=== PATIENT | male | born 1965 | race African-American/Black ===

== ENCOUNTER 2018-03-11 14:51 | Emergency (ER) | payer MEDICARE, OTHER ==
[~2018-03-11] VITALS: Ht 175.3 cm; Wt 102.1 kg
[~2018-03-11 14:51] MED LIST: ABILIFY15 MG ORAL; ACETAMINOPHEN500 MG ORAL; ALLOPURINOL100 M1 ORAL; ATIVAN1 MG ORAL; BENAZEPRIL HCL10 MG ORAL; CYCLOBENZAPRINE10 MG ORAL; DILANTIN100 MG ORAL; DIPHENHYDRAMINE25 M1 ORAL; IBUPROFEN600 M1 PO; IBUPROFEN600 MG ORAL; KEPPRA500 MG ORAL; NORCO 5-325 TA1 EAC1 ORAL; PERCOCET 5-3251 EACH ORAL; PREDNISONE20 M1 PO; PREDNISONE20 MG ORAL; RANITIDINE HCL150 MG ORAL; TRAMADOL HCL50 MG ORAL; ZANTAC150 MG ORAL; ZOLOFT100 MG ORAL
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
[2018-03-11] MEDS ORDERED: Norco 5mg/325mg tab PO ONE (15:15)
[2018-03-11 15:39] VITALS: BP 135/80
[2018-03-11] MEDS ORDERED: TRAMADOL HCL50 MG ORAL (15:57)
[2018-03-11] MEDS ORDERED: IBUPROFEN600 MG ORAL (15:57)
[2018-03-11] MEDS ORDERED: ROBAXIN500 MG PO (15:57)
[2018-03-11 16:13] VITALS: BP 135/80
--- NOTE | 2018-03-11 17:30 | Diagnostic Imaging Report ---
Indication: Trauma Technique: XRAY L Spine Ltd Comparison: None Findings: Bone mineralization within normal limits. The last imaged sets of ribs are hypoplastic. This vertebral body will be a noted as T12 for the purposes of counting on this exam only. There is degenerative change of the spine with disc space narrowing at L4-5 and L5-S1. There is also endplate degenerative changes at the levels and suggestion of facet arthropathy. There is no evidence of acute fracture. Vertebral body heights are maintained; no evidence of compression fracture. Sacroiliac joints and hip joints as well as the symphysis pubis are maintained. No radiopaque foreign body seen. IMPRESSION: Degenerative change of the lumbar spine without evidence of acute fracture.
--- NOTE | 2018-03-11 17:31 | Diagnostic Imaging Report ---
Indication: Trauma Technique: XRAY Chest 2v Comparison: None Findings: Heart size within the upper limits for normal. Mediastinal contours are sharp. There is no focal airspace consolidation. No pleural effusion or pneumothorax. There are degenerative changes of the spine. No acute osseous abnormality identified. IMPRESSION: No radiographic evidence of acute cardiopulmonary disease. No acute osseous abnormality.
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
== END 2018-03-11 16:30 | disposition home or self-care (01) ==
LOC: EDBD 14:51 → EMR 16:17
DX: S39.012A Strain of muscle, fascia and tendon of lower back, initial encounter (principal); S13.4XXA Sprain of ligaments of cervical spine, initial encounter; V43.52XA Car driver injured in collision with other type car in traffic accident, initial encounter; Y92.410 Unspecified street and highway as the place of occurrence of the external cause; I10 Essential (primary) hypertension; J45.909 Unspecified asthma, uncomplicated
CPT/HCPCS: 71046; 72020; 72052; 99284

== ENCOUNTER 2019-08-05 09:38 | Emergency (ER) | payer MEDICARE, OTHER ==
[~2019-08-05] VITALS: Ht 175.3 cm; Wt 72.6 kg
[~2019-08-05 09:38] MED LIST changes: +ROBAXIN500 MG PO
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
[2019-08-05 09:45] VITALS: BP 134/79
[2019-08-05] MEDS ORDERED: Phenytoin 500 MG in NS 110 ML IV ONE (09:45)
--- NOTE | 2019-08-05 09:45 | NUR ---
ED Nurse Note: xray @ bedside
--- NOTE | 2019-08-05 09:54 | Emergency Room Report ---
History of Present Illness General Chief Complaint: Seizure Source: Patient, EMS Present Illness HPI 53-year-old male history of seizures presents with seizure prior to arrival this morning patient has been intermittently taking his Dilantin with questionable compliance patient had a tonic-clonic movement hit his head, also had incontinence as well as tongue biting, lasting a few minutes self resolved patient presents for evaluation. Allergies: Coded Allergies: No Known Allergies (Unverified , 11/09/13) Patient History Past Medical History: see triage record Reviewed Nursing Documentation: PMH: Agreed; PSxH: Agreed Nursing Documentation-PMH Hx Hypertension: Yes Hx Asthma: Yes Hx COPD: No Hx Diabetes: No Hx Cancer: No Hx Gastrointestinal Problems: No Hx Cerebrovascular Accident: No Hx Seizures: Yes Review of Systems All Other Systems: negative except mentioned in HPI Physical Exam Vital Signs Date Time Temp Pulse Resp B/P (MAP) Pulse Ox O2 Delivery O2 Flow Rate FiO2 08/05/19 09:29 98.2 112 18 129/75 (93) 100 Room Air Sp02 EP Interpretation: reviewed, normal General Appearance: well appearing, no apparent distress, alert Head: normocephalic, atraumatic Eyes: bilateral eye PERRL, bilateral eye EOMI ENT: uvula midline, moist mucus membranes, other - Tongue laceration noted at the right hip Neck: supple, thyroid normal, no bony tend, supple/symm/no masses Respiratory: lungs clear, no respiratory distress, no retraction, no accessory muscle use Cardiovascular #1: normal peripheral pulses, regular rate, rhythm, no edema, no gallop, no murmur Gastrointestinal: non tender, soft, no guarding, no rebound Musculoskeletal: other - Bruising left chest left shoulder Neurologic: alert, oriented x3 Psychiatric: mood/affect normal Skin: no rash, warm/dry Medical Decision Making Diagnostic Impression: Primary Impression: Epileptic seizure, generalized ER Course 53-year-old male presents with seizure, differential diagnosis includes epilepsy , noncompliance, closed head injury We will provide patient with Dilantin here will obtain baseline labs Patient with low Dilantin level counseled patient importance of medication compliance Patient is at baseline disposition home Laboratory Tests Test 08/05/19 10:06 White Blood Count 6.0 K/UL (4.8-10.8) Red Blood Count 4.60 M/UL (4.70-6.10) L Hemoglobin 14.1 G/DL (14.2-18.0) L Hematocrit 42.9 % (42.0-52.0) Mean Corpuscular Volume 93 FL (80-99) Mean Corpuscular Hemoglobin 30.6 PG (27.0-31.0) Mean Corpuscular Hemoglobin Concent 32.8 G/DL (32.0-36.0) Red Cell Distribution Width 15.1 % (11.6-14.8) H Platelet Count 78 K/UL (150-450) L Mean Platelet Volume 10.9 FL (6.5-10.1) H Neutrophils (%) (Auto) % (45.0-75.0) Lymphocytes (%) (Auto) % (20.0-45.0) Monocytes (%) (Auto) % (1.0-10.0) Eosinophils (%) (Auto) % (0.0-3.0) Basophils (%) (Auto) % (0.0-2.0) Differential Total Cells Counted 100 Neutrophils % (Manual) 81 % (45-75) H Lymphocytes % (Manual) 10 % (20-45) L Monocytes % (Manual) 8 % (1-10) Eosinophils % (Manual) 1 % (0-3) Basophils % (Manual) 0 % (0-2) Band Neutrophils 0 % (0-8) Platelet Estimate Decreased L Platelet Morphology Normal Sodium Level 138 MMOL/L (136-145) Potassium Level 3.4 MMOL/L (3.5-5.1) L Chloride Level 99 MMOL/L (98-107) Carbon Dioxide Level 20 MMOL/L (21-32) L Anion Gap 19 mmol/L (5-15) H Blood Urea Nitrogen 10 mg/dL (7-18) Creatinine 1.5 MG/DL (0.55-1.30) H Estimate Glomerular Filtration Rate 59.4 mL/min (>60) Glucose Level 161 MG/DL (74-106) H Calcium Level 8.9 MG/DL (8.5-10.1) Total Bilirubin 1.2 MG/DL (0.2-1.0) H Direct Bilirubin 0.6 MG/DL (0.0-0.3) H Aspartate Amino Transferase (AST) 190 U/L (15-37) H Alanine Aminotransferase (ALT) 44 U/L (12-78) Alkaline Phosphatase 223 U/L (46-116) H Total Protein 9.3 G/DL (6.4-8.2) H Albumin 3.8 G/DL (3.4-5.0) Globulin 5.5 g/dL Albumin/Globulin Ratio 0.7 (1.0-2.7) L Phenytoin (Dilantin) Level < 0.5 ug/mL (10-20) L Valproic Acid Level < 3 MCG/ML (50-100) L EKG Diagnostic Results EKG Time: 09:41 EP Interpretation: NSR, rate 100, QTc 446, no acute ST elevations, left axis deviation Rhythm Strip Diag. Results Rhythm Strip Time: 09:54 EP Interpretation: yes Rate: 97 Rhythm: NSR, no PVC's, no ectopy Chest X-Ray Diagnostic Results Chest X-Ray Diagnostic Results : Chest X-Ray Ordered: Yes # of Views/Limited/Complete: 1 View Indication: Other - Seizure Interpretation: no consolidation, no effusion, no pneumothorax, no acute cardiopulmonary disease Impression: No acute disease Electronically Signed by: Larry Rg MD CT/MRI/US Diagnostic Results CT/MRI/US Diagnostic Results : Impression Procedure: CT Head no Contrast Indications: Headache, history of seizures Technique: Spiral acquisitions obtained through the brain. Angled axial and coronal 5 x 5 mm slices were reconstructed. Total dose length product 1072 mGycm. CTDI vol(s) 53 mGy. Dose reduction achieved using automated exposure control Comparison: None. Findings: No acute intracranial hemorrhage or edema. No mass effect nor midline shift. Normal gutierrez-white differentiation. There is mild age-related enlargement of the ventricles and extra axial CSF spaces.. The mastoids are clear. Visualized orbits and sinuses are unremarkable. The calvarium is intact Impression: Mild age-related volume loss Negative for acute intracranial bleed or mass effect The CT scanner at [facility] is accredited by the [employer] and the scans are performed using protocols designed to limit radiation exposure to as low as reasonably achievable to attain images of sufficient resolution adequate for diagnostic evaluation. Dictated By: Ruy Montes MD Electronically Signed By: Ruy Montes MD Signed Date/Time 08/05/19 1030 CC: Larry Rg MD Last Vital Signs Date Time Temp Pulse Resp B/P (MAP) Pulse Ox O2 Delivery O2 Flow Rate FiO2 2/18/20 09:29 98.2 112 18 129/75 (93) 100 Room Air Disposition: HOME, SELF-CARE Condition: Stable Scripts Phenytoin Sodium Extended* (DILANTIN*) 100 Mg Capsule 100 MG ORAL THREE TIMES A DAY, #90 CAP 0 Refills Prov: Larry Rg MD 08/05/19 Referrals: [facility] Patient Instructions: Seizure, Adult Additional Instructions: The patient was provided with discharge instructions, notified to follow-up with a primary care doctor and or specialist in the next 24-48 hours, and to return to the ED if they have worsening of their symptoms. Please note that this report is being documented using Fridge technology. This can lead to erroneous entry secondary to incorrect interpretation by the dictating instrument. Larry Rg MD Aug 05, 2019 09:54
--- NOTE | 2019-08-05 10:05 | NUR ---
ED Nurse Note: Blood sent to lab. Pt left to CT
[2019-08-05 10:15] LABS: HEMATOCRIT 42.9 % (42.0-52.0); HEMOGLOBIN 14.1 G/DL (14.2-18.0); MEAN CORPUSCULAR VOLUME 93 FL (80-99); PLATELET COUNT 78 K/UL (150-450); RED CELL DISTRIBUTION WIDTH 15.1 % (11.6-14.8)
--- NOTE | 2019-08-05 10:15 | NUR ---
ED Nurse Note: Pt attempted to give urine sample but was unsuccessful. Pt said he will try again in 30 minutes. Pt does not want to have catheter inserted. ED MD aware.
--- NOTE | 2019-08-05 10:19 | Diagnostic Imaging Report ---
Indication: Shortness of breath Technique: One view of the chest Comparison: 03/11/2018 Findings: The heart is mildly enlarged. The there is mild central bronchial wall thickening. Lungs and pleural spaces are clear otherwise. Impression: Mild cardiomegaly No definite acute process
[2019-08-05 10:35] LABS: ANION GAP 19 mmol/L (5-15); BLOOD UREA NITROGEN 10 mg/dL (7-18); CALCIUM 8.9 MG/DL (8.5-10.1); CARBON DIOXIDE 20 MMOL/L (21-32); CHLORIDE 99 MMOL/L (98-107); CREATININE 1.5 MG/DL (0.55-1.30); POTASSIUM 3.4 MMOL/L (3.5-5.1); SODIUM 138 MMOL/L (136-145)
--- NOTE | 2019-08-05 10:35 | Diagnostic Imaging Report ---
Indications: Headache, history of seizures Technique: Spiral acquisitions obtained through the brain. Angled axial and coronal 5 x 5 mm slices were reconstructed. Total dose length product 1072 mGycm. CTDI vol(s) 53 mGy. Dose reduction achieved using automated exposure control Comparison: None. Findings: No acute intracranial hemorrhage or edema. No mass effect nor midline shift. Normal gutierrez-white differentiation. There is mild age-related enlargement of the ventricles and extra axial CSF spaces.. The mastoids are clear. Visualized orbits and sinuses are unremarkable. The calvarium is intact Impression: Mild age-related volume loss Negative for acute intracranial bleed or mass effect The CT scanner at [facility] is accredited by the [employer] and the scans are performed using protocols designed to limit radiation exposure to as low as reasonably achievable to attain images of sufficient resolution adequate for diagnostic evaluation.
[2019-08-05] MEDS ORDERED: DILANTIN100 MG ORAL (10:39)
[2019-08-05 10:45] LABS: ALANINE AMINOTRANSFERASE 44 U/L (12-78); ALBUMIN 3.8 G/DL (3.4-5.0); ALBUMIN/GLOBULIN RATIO 0.7 (1.0-2.7); ALKALINE PHOSPHATASE 223 U/L (46-116); ASPARTATE AMINO TRANSFERASE 190 U/L (15-37); BILIRUBIN,TOTAL 1.2 MG/DL (0.2-1.0)
[2019-08-05 10:49] LABS: BILIRUBIN,DIRECT 0.6 MG/DL (0.0-0.3)
--- NOTE | 2019-08-05 11:18 | NUR ---
ED Nurse Note: PT. IS TOLERATING WELL THE MEDICATION. SEIZURE PRECAUTION MAINTAINED. NO S/S OF ACUTE DISTRESS NOTED
[2019-08-05 11:47] VITALS: BP 138/82
--- NOTE | 2019-08-05 11:47 | NUR ---
ER DISCHARGE NOTE: Patient is cleared to be discharged per ERMD, pt is aox4, on room air, with stable vital signs. pt was given dc and prescription instructions, pt was able to verbalize understanding, pt id band and iv site removed without complications. pt discharged with wheelchair to family vehicle.
== END 2019-08-05 11:47 | disposition home or self-care (01) ==
LOC: EDBD 09:38 → EMR 11:00
DX: G40.909 Epilepsy, unspecified, not intractable, without status epilepticus (principal); I10 Essential (primary) hypertension
CPT/HCPCS: 36415; 70450; 71045; 80053; 80164; 80185; 82248; 82962; 85007; 85025; 93005; 96365; 99284; J1165; J7030